=== PATIENT | female | born 2000 | race Caucasian/White ===

== ENCOUNTER 2022-04-15 14:24 | Outpatient (REF) | payer MEDICAID, SELFPAY ==
--- NOTE | 2022-04-15 13:30 | PAPFT_PTH ---
PATIENT: Andrew Juares LOC: [facility]#:[id number] AGE/SX: 21/F ROOM: RE04/15/[address]: Gwendolyn Lawton : 2000 BED: DIS: 04/15/2022 SPEC #: [id number] RECD: 04/16/22 12:57 STATUS: JASON REQ #: [id number] JENNY: 04/15/22 13:[address]: Gwendolyn Lawton DEPT: [facility] Cytology RECD BY: Heaven Bearden ENTERED: 04/16/22 12:57 SP TYPE: PAPFT OTHR DR: Unknown,Unknown Tissues: 1 - CX/ENDOCX FOR PAP SMEARS Procedures: PAP THIN PREP/[facility] Screening Comments: [id number] (CHLAMYDIA/GC)
[2022-04-19 13:24] LABS: Chlamydia Result Negative (Negative); GC Result Negative (Negative)
== END 2022-04-15 14:25 | disposition home or self-care (01) ==
LOC: NCHCN 14:24
PROVIDERS: Visit Provider Nurse Practitioner Family
DX: Z11.3 Encounter for screening for infections with a predominantly sexual mode of transmission (principal); Z12.4 Encounter for screening for malignant neoplasm of cervix
CPT/HCPCS: 87491; 87591; 88142

== ENCOUNTER 2022-09-30 16:33 | Outpatient (CLI) | payer MEDICAID, SELFPAY ==
--- NOTE | 2022-09-30 | DI.US_ITS ---
Exam(s) US PELVIS TRANSVAGINAL EXAM: US PELVIS TRANSVAGINAL CLINICAL HISTORY: ABNL UTERINE BLEEDING, N93.9, 2+ WKS OUTSIDE OF MENSTRUAL CYCLE, MILD CRAMP TECHNIQUE: Transabdominal and transvaginal imaging was performed using standard protocol. COMPARISON: No exams were available for comparison FINDINGS: UTERUS: Anteverted. 6.9 x 3.0 x 4.2 cm Endometrium: 5 mm Myometrium: Unremarkable. Cervix: Unremarkable. OVARIES: Right: Cyst or mass: None. Left: Cyst or mass: None. DOPPLER: Color: Symmetric and uniform flow to both ovaries. No hyperemia. CUL-DE-SAC: Free fluid: None. IMPRESSION: 1. Normal-appearing uterus with endometrial stripe within normal limits. 2. Unremarkable bilateral ovaries. DATA REPOSITORY:
== END 2022-09-30 16:53 ==
PROVIDERS: Visit Provider Physician Assistant Medical
DX: N93.9 Abnormal uterine and vaginal bleeding, unspecified (principal)
CPT/HCPCS: 76830; 76856

== ENCOUNTER 2024-07-30 14:09 | Outpatient (REF) | payer OTHER, SELFPAY ==
[2024-08-01 12:46] LABS: Bacterial Vaginosis (BV) Negative (Negative); Candida glabrata Negative (Negative); Candida species group Negative (Negative); Chlamydia Result Negative (Negative); GC Result Negative (Negative); Trichomonas vaginalis Negative (Negative)
== END 2024-07-30 14:10 | disposition home or self-care (01) ==
LOC: NCHCN 14:09
PROVIDERS: Visit Provider Nurse Practitioner Family
DX: Z00.00 Encounter for general adult medical examination without abnormal findings (principal)
CPT/HCPCS: 81513; 87481; 87491; 87591; 87661